=== PATIENT | female | born 1985 | race Caucasian/White ===

== ENCOUNTER 2017-07-05 15:26 | Emergency (ER) | payer SELFPAY ==
[2017-07-05 17:07] LABS: HEMATOCRIT 28.6 % (36.0-48.0); MCV 65.3 fL (80.0-100.0); PLATELET COUNT 455 10x3/uL (130-400); RBC 4.38 10x6/uL (4.00-5.40); RDW 20.3 % (11.5-14.5); WBC 5.3 10x3/uL (4.8-10.8)
[2017-07-05 17:08] LABS: MCH 18.3 pg (26.0-34.0); MEAN PLATELET VOLUME 8.4 fL (7.4-10.4)
[2017-07-05 17:10] LABS: BASOPHILS 0.6 % (0-2); EOSINOPHILS 3.1 % (0-7); MONOCYTES 7.4 % (2-11); NEUTROPHILS 46.9 % (40-80)
== END 2017-07-05 16:41 | disposition home or self-care (01) ==
LOC: D.ER 15:26
PROVIDERS: Family Medicine
DX: R10.9 Unspecified abdominal pain (principal); Z85.43 Personal history of malignant neoplasm of ovary

== ENCOUNTER 2017-09-04 14:47 | Emergency (ER) | payer SELFPAY ==
[~2017-09-04] VITALS: Ht 177.8 cm; Wt 68.2 kg
[2017-09-04 14:53] VITALS: Ht 177.8 cm; Wt 68.2 kg
[2017-09-04] MEDS ORDERED: PRENATAL COMPLE1 TAB PO (14:56)
[2017-09-04] MEDS ORDERED: OMNICEF300 MG PO (15:31)
[2017-09-04 16:15] VITALS: BP 101/60
== END 2017-09-04 16:18 | disposition home or self-care (01) ==
LOC: D.ER 14:47
DX: O26.892 Other specified pregnancy related conditions, second trimester (principal); Z3A.16 16 weeks gestation of pregnancy; H66.91 Otitis media, unspecified, right ear; J01.90 Acute sinusitis, unspecified; H92.01 Otalgia, right ear; R09.89 Other specified symptoms and signs involving the circulatory and respiratory systems; F17.200 Nicotine dependence, unspecified, uncomplicated

== ENCOUNTER 2017-12-24 20:11 | Emergency (ER) | payer MEDICAID ==
[~2017-12-24] VITALS: Ht 177.8 cm; Wt 71.8 kg
[~2017-12-24 20:11] MED LIST: OMNICEF300 MG PO; PRENATAL COMPLE1 TAB PO
[2017-12-24 20:16] VITALS: Ht 177.8 cm; Wt 71.8 kg
[2017-12-24] MEDS ORDERED: CLEOCIN HCL300 MG PO (20:37)
[2017-12-24 20:56] VITALS: BP 127/82
== END 2017-12-24 20:56 | disposition home or self-care (01) ==
LOC: D.ER 20:11
DX: K02.9 Dental caries, unspecified (principal); S02.5XXA Fracture of tooth (traumatic), initial encounter for closed fracture; X58.XXXA Exposure to other specified factors, initial encounter; Y93.89 Activity, other specified; Y92.019 Unspecified place in single-family (private) house as the place of occurrence of the external cause; K08.89 Other specified disorders of teeth and supporting structures; F17.200 Nicotine dependence, unspecified, uncomplicated

== ENCOUNTER 2018-08-08 19:09 | Emergency (ER) | payer MEDICAID ==
[~2018-08-08] VITALS: Ht 177.8 cm; Wt 65.0 kg
[~2018-08-08 19:09] MED LIST changes: +CLEOCIN HCL300 MG PO
[2018-08-08 19:24] VITALS: Ht 177.8 cm; Wt 65.0 kg
[2018-08-08] MEDS ORDERED: TORADOL10 MG PO (20:45)
[2018-08-08 20:59] VITALS: BP 119/81
== END 2018-08-08 21:00 | disposition home or self-care (01) ==
LOC: D.ER 19:09
DX: R07.81 Pleurodynia (principal)

== ENCOUNTER → 2019-08-31 | Emergency (ER) | payer MEDICAID ==
[~2019-08-31] VITALS: Ht 177.8 cm; Wt 69.1 kg
[~2019-08-31] MED LIST changes: +NAPROSYN500 MG PO; +TORADOL10 MG PO; +ULTRAM50 MG PO
[2019-08-31 20:32] VITALS: BP 115/69; Ht 177.8 cm; Wt 69.1 kg
== END | disposition home or self-care (01) ==
LOC: D.ER 20:14
DX: M54.5 Low back pain (principal); W19.XXXA Unspecified fall, initial encounter; Y93.9 Activity, unspecified; Y92.9 Unspecified place or not applicable